=== PATIENT | male | born 1940 | race Caucasian/White ===

== ENCOUNTER 2019-01-20 12:22 | Inpatient (IN) | payer OTHER, MEDICARE | END 2019-02-06 14:19 | disposition home or self-care (01) | LOC: ER 12:22 → PCU 3S 01-27 17:35 | DX: I21.4 Non-ST elevation (NSTEMI) myocardial infarction (principal); I50.23 Acute on chronic systolic (congestive) heart failure; N17.0 Acute kidney failure with tubular necrosis; I48.91 Unspecified atrial fibrillation ==